=== PATIENT | male | born 1930 | race Asian ===

== ENCOUNTER 2017-01-04 16:09 | Inpatient (IN) | payer MEDICARE ==
[~2017-01-04] VITALS: Ht 182.9 cm; Wt 62.6 kg
[2017-01-04] MEDS ORDERED: ACETAMINOPHEN 650MG SUPP PR STA (18:19)
[2017-01-04] MEDS ORDERED: VANCOMYCIN 1 G PREMIX 200 ML IV ONE (18:30)
[2017-01-04] MEDS ORDERED: PIPERACILLIN SODIUM/TAZOBACTAM 4.5 G in DEXT 5% WATER 100 ML IV ONE (18:30)
[2017-01-04] MEDS ORDERED: SODIUM CHLORIDE 0.9% 1000ML BAG (SEPSIS BOLUS) IV ONE (18:30)
[2017-01-04 18:32] LABS: CLARITY URINE CLOUDY (CLEAR); COLOR URINE DARK YELLOW (YELLOW); GLUCOSE URINE NEGATIVE (NEGATIVE); KETONES URINE TRACE (NEGATIVE); LEUKOCYTE ESTERASE URINE 1+ (NEGATIVE); NITRITE URINE NEGATIVE (NEGATIVE); OCCULT BLOOD URINE 2+ (NEGATIVE); PROTEIN URINE 1+ (NEGATIVE); SPECIFIC GRAVITY URINE 1.024 (1.005-1.030); UROBILINOGEN URINE 0.2 E.U./dL (0.2-1.0)
[2017-01-04 18:52] LABS: SQUAMOUS EPITHELIAL CELL URINE FEW /lpf (RARE/1+)
[2017-01-04 18:55] LABS: BACTERIA URINE TRACE; RBC URINE 0-2 /hpf (0-2); YEAST URINE 2+
[2017-01-04 19:12] LABS: HEMATOCRIT. 45.4 % (42.0-52.0); MEAN CORPUSCULAR HEMOGLOBIN 26.1 pg (28.0-32.0); MEAN CORPUSCULAR HGB CONC 30.9 g/dL (31.0-37.0); MEAN CORPUSCULAR VOLUME 84.4 fL (80.0-94.0); MEAN PLATELET VOLUME 9.5 fl (7.4-10.4); PLATELET 396 x1000/uL (130-400); RED BLOOD CELL COUNT 5.38 mill/uL (4.7-6.1); RED CELL DISTRIBUTION WIDTH 17.3 % (11.6-14.6); WHITE BLOOD COUNT 29.2 x1000/uL (4.5-11.0)
[2017-01-04 19:16] LABS: DIFFERENTIAL COMMENT 1
[2017-01-04 19:22] LABS: INR 1.3; PROTHROMBIN TIME 13.6 sec
[2017-01-04 19:26] LABS: ALANINE AMINOTRANSFERASE 13 IU/L (13-61); ANION GAP 18; CALCIUM 9.2 mg/dL (8.5-10.1); CARBON DIOXIDE 22 mEq/L (21-32); CHLORIDE 119 mEq/L (98-107); INDEX HEMOLYSI 1 (1-3); INDEX ICTERIC 1 (1-4); INDEX LIPEMIC 1 (1-3); NT PRO B-TYPE NATRIURETIC PEP 8216 pg/mL (5-125); TROPONIN I 0.06 ng/mL (0.00-0.04); UREA NITROGEN BLOOD 51 mg/dL (7-21); eGFR 25 mL/min (>60)
[2017-01-04 19:35] LABS: LACTIC ACID 5.1 mmol/L (0.4-2.0)
[2017-01-04 19:40] LABS: PLATELET ESTIMATE NORMAL
[2017-01-04 19:41] LABS: GIANT PLATELETS 1+
[2017-01-04 22:45] VITALS: BP 100/50
[2017-01-05] VITALS (12 sets, daily range): BP systolic 93–121; BP diastolic 36–61
[2017-01-05] MEDS ORDERED: DEXTROSE 50% WATER 50ML SYRINGE IV PRN
[2017-01-05] MEDS ORDERED: ACETAMINOPHEN 650MG SUPP PR PRN
[2017-01-05] MEDS: BLOOD SUGAR DIAGNOSTIC STRIP TEST SCH ×4 (00:31→18:16)
[2017-01-05] MEDS: INSULIN LISPRO 100 UNITS/ML SUBCUT SCH ×3 (00:44→18:00)
[2017-01-05] MEDS: SODIUM CHLORIDE 0.45% 1,000 ML IV SCH ×2 (00:44→08:00)
[2017-01-05] MEDS: PIPERACILLIN/TAZ 2.25G PREMIX 50 ML IV SCH ×2 (02:00→08:00)
[2017-01-05 06:32] LABS: BASOPHILS % 0.3 % (0.0-2.0); HEMATOCRIT. 37.1 % (42.0-52.0); HEMOGLOBIN. 11.6 g/dL (14.0-18.0); LYMPHOCYTES % 7.5 % (20.0-50.0); MEAN CORPUSCULAR HEMOGLOBIN 26.7 pg (28.0-32.0); MEAN CORPUSCULAR HGB CONC 31.3 g/dL (31.0-37.0); MEAN CORPUSCULAR VOLUME 85.5 fL (80.0-94.0); MEAN PLATELET VOLUME 9.4 fl (7.4-10.4); MONOCYTES % 5.6 % (2.0-8.0); NEUTROPHILS % 86.6 % (40.0-76.0); PLATELET 270 x1000/uL (130-400); RED BLOOD CELL COUNT 4.34 mill/uL (4.7-6.1); RED CELL DISTRIBUTION WIDTH 17.3 % (11.6-14.6); WHITE BLOOD COUNT 21.6 x1000/uL (4.5-11.0)
[2017-01-05 06:47] LABS: ALANINE AMINOTRANSFERASE 10 IU/L (13-61); ALBUMIN 2.2 g/dL (3.4-5.0); ANION GAP 14; CALCIUM 8.3 mg/dL (8.5-10.1); CARBON DIOXIDE 21 mEq/L (21-32); CHLORIDE 125 mEq/L (98-107); INDEX HEMOLYSI 1 (1-3); INDEX ICTERIC 1 (1-4); INDEX LIPEMIC 1 (1-3); UREA NITROGEN BLOOD 53 mg/dL (7-21); eGFR 29 mL/min (>60)
[2017-01-05] MEDS: PANTOPRAZOLE SODIUM 40 MG/VIAL IV SCH (08:00)
[2017-01-05] MEDS: ENOXAPARIN 30MG/0.3ML SYR SUBCUT SCH (08:01)
[2017-01-05] MEDS ORDERED: SODIUM CHL 0.45% + KCL 20MEQ/L 1,000 ML IV SCH (11:00)
[2017-01-05] MEDS: PIPERACILLIN/TAZ 3.375G PREMIX 50 ML IV SCH ×2 (14:03→21:05)
[2017-01-05] MEDS ORDERED: FLUCONAZOLE 100MG/50ML PREMIX IV ONE (16:00)
[2017-01-05] MEDS ORDERED: FLUCONAZOLE 100MG/50ML in BAG IV NR (17:30)
[2017-01-05] MEDS: DEXTROSE 5% WATER 1,000 ML IV SCH (17:37)
[2017-01-05] MEDS ORDERED: DIATR MEGLU/DIATRIZOATE SOLN 30ML PO SCH (18:00)
[2017-01-05] MEDS ORDERED: VANCOMYCIN 500 MG PREMIX 100 ML IV SCH (18:30)
[2017-01-05] MEDS: VANCOMYCIN 750 MG PREMIX 150 ML IV SCH (20:09)
[2017-01-06] VITALS (15 sets, daily range): BP systolic 88–126; BP diastolic 46–59
[2017-01-06] MEDS: INSULIN LISPRO 100 UNITS/ML SUBCUT SCH ×4 (00:23→18:00)
[2017-01-06] MEDS: BLOOD SUGAR DIAGNOSTIC STRIP TEST SCH ×4 (00:24→18:03)
[2017-01-06] MEDS: PIPERACILLIN/TAZ 3.375G PREMIX 50 ML IV SCH ×3 (05:15→21:50)
[2017-01-06 05:45] LABS: HEMOGLOBIN. 10.9 g/dL (14.0-18.0); MEAN CORPUSCULAR HEMOGLOBIN 26.4 pg (28.0-32.0); MEAN CORPUSCULAR HGB CONC 31.9 g/dL (31.0-37.0); MEAN CORPUSCULAR VOLUME 82.6 fL (80.0-94.0); MEAN PLATELET VOLUME 9.4 fl (7.4-10.4); PLATELET 305 x1000/uL (130-400); RED BLOOD CELL COUNT 4.12 mill/uL (4.7-6.1); RED CELL DISTRIBUTION WIDTH 16.9 % (11.6-14.6); WHITE BLOOD COUNT 18.8 x1000/uL (4.5-11.0)
[2017-01-06 06:35] LABS: ALANINE AMINOTRANSFERASE 10 IU/L (13-61); ANION GAP 13; CALCIUM 7.8 mg/dL (8.5-10.1); CARBON DIOXIDE 20 mEq/L (21-32); CHLORIDE 124 mEq/L (98-107); INDEX HEMOLYSI 1 (1-3); INDEX ICTERIC 1 (1-4); INDEX LIPEMIC 1 (1-3); LIPASE 122 IU/L (73-393); UREA NITROGEN BLOOD 43 mg/dL (7-21); eGFR 41 mL/min (>60)
[2017-01-06 07:04] LABS: DIFFERENTIAL COMMENT 1
[2017-01-06] MEDS ORDERED: POTASSIUM CHLORIDE INJ 50 MEQ in DEXT 5% WATER 250 ML IV SCH (09:00)
[2017-01-06] MEDS: PANTOPRAZOLE SODIUM 40 MG/VIAL IV SCH (09:09)
[2017-01-06] MEDS: ENOXAPARIN 30MG/0.3ML SYR SUBCUT SCH (09:09)
[2017-01-06] MEDS: DEXTROSE 5% WATER 1,000 ML IV SCH (09:10)
[2017-01-06 19:21] LABS: PLATELET ESTIMATE NORMAL
[2017-01-06] MEDS: VANCOMYCIN 750 MG PREMIX 150 ML IV SCH (21:08)
[2017-01-07] VITALS (11 sets, daily range): BP systolic 93–125; BP diastolic 49–69
[2017-01-07] MEDS: BLOOD SUGAR DIAGNOSTIC STRIP TEST SCH ×4 (00:03→16:46)
[2017-01-07] MEDS: DEXTROSE 5% WATER 1,000 ML IV SCH ×3 (03:03→21:29)
[2017-01-07] MEDS: PIPERACILLIN/TAZ 3.375G PREMIX 50 ML IV SCH ×3 (05:59→21:29)
[2017-01-07] MEDS: INSULIN LISPRO 100 UNITS/ML SUBCUT SCH ×4 (06:00→16:46)
[2017-01-07 06:53] LABS: BASOPHILS % 0.2 % (0.0-2.0); EOSINOPHILS % 0.8 % (0.0-5.0); HEMATOCRIT. 32.6 % (42.0-52.0); HEMOGLOBIN. 10.4 g/dL (14.0-18.0); LYMPHOCYTES % 7.3 % (20.0-50.0); MEAN CORPUSCULAR HEMOGLOBIN 26.3 pg (28.0-32.0); MEAN CORPUSCULAR VOLUME 82.3 fL (80.0-94.0); MEAN PLATELET VOLUME 9.4 fl (7.4-10.4); MONOCYTES % 3.3 % (2.0-8.0); NEUTROPHILS % 88.4 % (40.0-76.0); PLATELET 257 x1000/uL (130-400); RED BLOOD CELL COUNT 3.97 mill/uL (4.7-6.1); RED CELL DISTRIBUTION WIDTH 17.1 % (11.6-14.6); WHITE BLOOD COUNT 13.9 x1000/uL (4.5-11.0)
[2017-01-07 07:14] LABS: CALCIUM 7.4 mg/dL (8.5-10.1)
[2017-01-07] MEDS: ENOXAPARIN 30MG/0.3ML SYR SUBCUT SCH (09:33)
[2017-01-07] MEDS: PANTOPRAZOLE SODIUM 40 MG/VIAL IV SCH (09:33)
[2017-01-07] MEDS ORDERED: POTASSIUM CHLORIDE 20MEQ TABLET SR PO NR (11:00)
[2017-01-07] MEDS ORDERED: KCL 20MEQ/100ML PREMIX 100 ML IV NR (13:00)
[2017-01-07] MEDS: VANCOMYCIN 1 G PREMIX 200 ML IV SCH (13:34)
[2017-01-07] MEDS: VANCOMYCIN HCL 1000 MG/20 ML ORAL PO SCH (18:00)
[2017-01-07] MEDS ORDERED: VANCOMYCIN HCL 1 GM/VIAL PO SCH (18:00)
[2017-01-08] VITALS (11 sets, daily range): BP systolic 101–119; BP diastolic 52–67
[2017-01-08] MEDS: VANCOMYCIN HCL 1000 MG/20 ML ORAL PO SCH ×4 (00:25→17:36)
[2017-01-08] MEDS: INSULIN LISPRO 100 UNITS/ML SUBCUT SCH ×4 (00:29→18:00)
[2017-01-08] MEDS: BLOOD SUGAR DIAGNOSTIC STRIP TEST SCH ×4 (00:30→18:33)
[2017-01-08] MEDS: PIPERACILLIN/TAZ 3.375G PREMIX 50 ML IV SCH ×2 (05:41→14:06)
[2017-01-08] MEDS: VANCOMYCIN 1 G PREMIX 200 ML IV SCH (06:27)
[2017-01-08] MEDS: PANTOPRAZOLE SODIUM 40 MG/VIAL IV SCH (09:09)
[2017-01-08] MEDS: ENOXAPARIN 30MG/0.3ML SYR SUBCUT SCH (09:09)
[2017-01-09] MEDS ORDERED: FAMOTIDINE 20MG TABLET PO SCH (09:00)
== END 2017-01-08 19:27 | DRG 871 ==
LOC: ER 16:09 → 5EST 20:32
PROVIDERS: ADMIT Internal Medicine; ATTEND Internal Medicine
DX: A41.9 Sepsis, unspecified organism (principal); G93.40 Encephalopathy, unspecified; J18.9 Pneumonia, unspecified organism; N17.9 Acute kidney failure, unspecified; E87.0 Hyperosmolality and hypernatremia; J98.11 Atelectasis; M80.08XA Age-related osteoporosis with current pathological fracture, vertebra(e), initial encounter for fracture; R64 Cachexia; Z68.1 Body mass index [BMI] 19.9 or less, adult; N39.0 Urinary tract infection, site not specified; A04.7 Enterocolitis due to Clostridium difficile; D32.9 Benign neoplasm of meninges, unspecified; D64.9 Anemia, unspecified; E87.6 Hypokalemia; E87.70 Fluid overload, unspecified; F03.90 Unspecified dementia, unspecified severity, without behavioral disturbance, psychotic disturbance, mood disturbance, and anxiety; I25.10 Atherosclerotic heart disease of native coronary artery without angina pectoris; R62.7 Adult failure to thrive; R73.9 Hyperglycemia, unspecified; Z95.810 Presence of automatic (implantable) cardiac defibrillator; Z22.322 Carrier or suspected carrier of Methicillin resistant Staphylococcus aureus
CPT/HCPCS: 36415; 70450; 71010; 74176; 80048; 80053; 80202; 81001; 82962; 83036; 83605; 83690; 83880; 84484; 85025; 85610; 87040; 87086; 87106; 87493; 92610; 93005; 96365; 96366; 96368; 99291; C9113; J1450; J1650; J1815; J2543; J3370; J3480; J7030; J7060; J7070; Q9963